=== PATIENT | female | born 1955 | race Caucasian/White ===

== ENCOUNTER 2022-11-03 19:46 | Observation (INO) | payer MEDICARE, BC ==
[~2022-11-03] VITALS: Ht 162.6 cm; Wt 63.5 kg
[~2022-11-03 19:46] MED LIST: FISH OIL 1,0001 EAC5 PO; LYSINE500 MG PO; MECLIZINE HCL25 MG PO; MULTI VITAMIN1 EACH PO; NORCO 5-325 TA1 EACH PO
[2022-11-03] MEDS ORDERED: TRIAMTERENE-HC1 EAC1 PO (19:57)
[2022-11-03 20:00] LABS: BASOPHILS 1.1 % (0-2); EOSINOPHILS 4.2 % (0-6); HEMATOCRIT 39.2 % (35.0-50.0); HEMOGLOBIN 13.3 g/dL (12.0-18.0); LYMPHOCYTES 34.1 % (24-44); MCH 28.9 (27-36); MONOCYTES 12.4 % (0-12); NEUTROPHILS 48.2 % (39-80); PLATELET COUNT 300 K/uL (140-440); RBC 4.61 M/ul (4.3-5.7); RDW 13.3 (10.5-15.0)
[2022-11-03 20:36] LABS: ALBUMIN 3.9 g/dL (3.4-5.0); ALBUMIN/GLOBULIN RATIO 1.11 (1.1-2.4); ANION GAP 13.4 (7-21); BILIRUBIN, TOTAL 0.5 ng/dL (0.2-1.0); BUN/CREATININE RATIO 16.16 (6.0-28.6); CALCIUM 9.3 mg/dL (8.5-10.1); CREATININE, SERUM 0.99 mg/dL (0.55-1.02); MAGNESIUM 1.8 mg/dL (1.8-2.4); PROTEIN, TOTAL 7.4 g/dL (6.4-8.2)
[2022-11-03 20:38] LABS: POTASSIUM 2.4 mmol/L (3.5-5.1)
[2022-11-03 22:33] VITALS: BP 126/61
[2022-11-04] VITALS: BP 96/52
[2022-11-04 01:48] LABS: ANION GAP 12.1 (7-21); BUN/CREATININE RATIO 16.66 (6.0-28.6); CALCIUM 8.5 mg/dL (8.5-10.1); CREATININE, SERUM 1.02 mg/dL (0.55-1.02); POTASSIUM 4.1 mmol/L (3.5-5.1)
[2022-11-04 05:24] LABS: BASOPHILS 0.5 % (0-2); EOSINOPHILS 2.1 % (0-6); HEMATOCRIT 35.8 % (35.0-50.0); LYMPHOCYTES 22.9 % (24-44); MCH 28.9 (27-36); MCHC 33.6 g/dl (30-36); MCV 86.1 fl (81-99); MONOCYTES 9.8 % (0-12); NEUTROPHILS 64.7 % (39-80); PLATELET COUNT 241 K/uL (140-440); RBC 4.16 M/ul (4.3-5.7); RDW 13.4 (10.5-15.0)
[2022-11-04 05:48] LABS: ALBUMIN 3.2 g/dL (3.4-5.0); ALBUMIN/GLOBULIN RATIO 1.1 (1.1-2.4); ANION GAP 13.8 (7-21); BILIRUBIN, TOTAL 0.5 ng/dL (0.2-1.0); BUN/CREATININE RATIO 22.09 (6.0-28.6); CALCIUM 8.5 mg/dL (8.5-10.1); CREATININE, SERUM 0.86 mg/dL (0.55-1.02); MAGNESIUM 1.8 mg/dL (1.8-2.4); POTASSIUM 3.8 mmol/L (3.5-5.1); PROTEIN, TOTAL 6.1 g/dL (6.4-8.2)
[2022-11-04 06:31] VITALS: BP 113/66
[2022-11-04 08:19] VITALS: BP 101/54
[2022-11-04] MEDS ORDERED: POTASSIUM CHLO20 ME1 PO (11:12)
[2022-11-04 11:54] VITALS: BP 145/71
--- NOTE | 2022-11-05 05:47 | EKG ---
[facility] [address] [place] [address] Signed Sinus rhythm with premature atrial complexes prolonged QTc Otherwise normal ECG No previous ECGs available Confirmed by ROSALINDA LUNSFORD MD ([id number]) on 11/05/2022 5:47:34 AM Electronically Signed By: ROSALINDA LUNSFORD 11/05/22 0547 PATIENT NAME: ARACELI WATKINSCOLTEN SANTOS Electrocardiogram DATE OF : 51 PHYSICIAN: ROSALINDA LUNSFORD REPORT #: [id number] REPORT IS CONFIDENTIAL AND NOT TO BE RELEASED WITHOUT AUTHORIZATION
== END 2022-11-04 12:45 | disposition home or self-care (01) ==
LOC: ED 19:46 → CCU 19:48
PROVIDERS: Family Medicine; ADMIT Family Medicine; ATTEND Family Medicine
DX: R55 Syncope and collapse (principal); E87.6 Hypokalemia; H81.09 Meniere's disease, unspecified ear; Z88.0 Allergy status to penicillin; Z88.5 Allergy status to narcotic agent; Z79.899 Other long term (current) drug therapy; Z20.822 Contact with and (suspected) exposure to COVID-19
CPT/HCPCS: 36415; 51702; 80048; 80053; 83735; 85025; 93005; 93010; 96366; 99285-25; A9270; C9803; G0008; G0378; J2405; J3480; J7030; U0002